=== PATIENT | female | born 1980 | race Two or more races ===

== ENCOUNTER 2024-06-30 21:20 | Emergency (ER) | payer OTHER ==
[~2024-06-30] VITALS: Ht 165.1 cm; Wt 79.4 kg
[2024-06-30] MEDS ORDERED: ONDANSETRON 4 MG/2 ML VIAL ONE (22:05)
[2024-06-30] MEDS ORDERED: KETOROLAC TROMETHAMINE 30 MG INJ ONE (22:06)
[2024-06-30 22:11] LABS: BASOPHILS # (AUTO) 0.1 K/UL (0.0-0.2); BASOPHILS % (AUTO) 0.5 % (0.0-2.0); EOSINOPHILS % (AUTO) 0.1 % (0.0-7.0); HEMATOCRIT 36.9 % (31.2-41.9); HEMOGLOBIN 12.3 g/dL (10.9-14.3); LYMPHOCYTES # (AUTO) 0.9 K/uL (0.8-4.8); LYMPHOCYTES % (AUTO) 6.3 % (20.5-51.5); MEAN CORPUSCULAR HEMOGLOBIN 28.1 uug (24.7-32.8); MEAN CORPUSCULAR HGB CONC 33 g/dL (32.3-35.6); MEAN CORPUSCULAR VOLUME 84.6 fL (75.5-95.3); MONOCYTES # (AUTO) 1.1 K/uL (0.1-1.30); MONOCYTES % (AUTO) 7.6 % (0.0-11.0); NEUTROPHILS # (AUTO) 12.3 K/uL (1.8-8.9); NEUTROPHILS % (AUTO) 85.5 % (38.5-71.5); PLATELET COUNT (AUTO) 294 K/uL (179-408); RED BLOOD CELL COUNT(AUTO) 4.36 MIL/uL (3.63-4.92); RED CELL DISTRIBUTION WIDTH 14.1 % (12.3-17.7); WHITE BLOOD COUNT (AUTO) 14.4 K/uL (3.8-11.8)
[2024-06-30 22:16] LABS: DIFFERENTIAL COMMENT 1
[2024-06-30] MEDS: KETOROLAC TROMETHAMINE 15 MG INJ IVP ONE (22:17)
[2024-06-30] MEDS: ONDANSETRON 4 MG/2 ML VIAL IV ONE (22:17)
[2024-06-30] MEDS: IV NORMAL SALINE 1000 ML BAG IV ONE (22:17)
[2024-06-30 22:23] LABS: CALCIUM 9.2 mg/dL (8.5-10.1); CARBON DIOXIDE 24 mmol/L (21-32); CHLORIDE 102 mmol/L (98-107); CREATININE 0.9 mg/dL (0.6-1.3); GLUCOSE 124 mg/dL (74-106); POTASSIUM 3.4 mmol/L (3.5-5.1); SODIUM SERUM 141 mmol/L (136-145); UREA NITROGEN, BLOOD 11 mg/dL (7-18)
[2024-06-30 22:28] LABS: ALANINE AMINOTRANSFERASE 20 U/L (14-59); ALBUMIN 3.5 g/dL (3.4-5.0); ALKALINE PHOSPHATASE 65 U/L (50-136); ASPARTATE AMINOTRANSFERASE 14 U/L (15-37); BILIRUBIN,DIRECT 0.2 mg/dL (0.0-0.2); BILIRUBIN,TOTAL 0.6 mg/dL (0.2-1.0); LIPASE 20 U/L (16-77); TOTAL PROTEIN, SERUM 7.2 g/dL (6.4-8.2)
[2024-06-30 22:44] LABS: PREGNANCY TEST SERUM QUAN < 1 miul/L (0-6)
[2024-06-30 23:33] LABS: *BILIRUBIN,URIN NEGATIVE (NEGATIVE); *BLOOD, URINE 3+ (NEGATIVE); *CLARITY,URINE SLIGHTLY CLOUDY (CLEAR); *COLOR,URINE YELLOW (YELLOW); *KETONES,URINE NEGATIVE (NEGATIVE); *PROTEIN,URINE 1+ (NEGATIVE); *UROBILINOGEN,URINE 0.2 E.U./dl (NORMAL); LEUKOCYTE ESTERASE ,URINE 1+ (NEGATIVE); NITRITE, URINE POSITIVE (NEGATIVE); UGLUCOSE NEGATIVE (NEGATIVE)
[2024-06-30 23:45] LABS: BACTERIA,URINE MANY /HPF (NONE SEEN); SQUAMOUS EPITHELIAL CELL,UR MODERATE /HPF (NONE SEEN)
[2024-07-01] MEDS ORDERED: ONDA4TAB11 PO (00:03)
[2024-07-01] MEDS ORDERED: NITR-84 PO (00:03)
[2024-07-01 00:33] VITALS: BP 112/70; TEMP 100; O2SAT 98
[2024-07-01] MEDS ORDERED: CEFP200T14 PO (22:36)
== END 2024-07-01 00:34 | disposition home or self-care (01) ==
LOC: ER 21:35
DX: R11.2 Nausea with vomiting, unspecified (principal); R53.1 Weakness; R00.0 Tachycardia, unspecified; R50.9 Fever, unspecified; R82.81 Pyuria; R10.2 Pelvic and perineal pain; Z87.442 Personal history of urinary calculi
CPT/HCPCS: 99285; 96374; 76770; 71045; 96375; 80076; 80048; 81001; 83690; 85025; 87040 ×2; 87086; 84702; 36415; 83605; J1885; J2405; J7040; A4606; A4663

== ENCOUNTER 2024-07-01 19:45 | Emergency (ER) | payer OTHER ==
[~2024-07-01] VITALS: Ht 165.1 cm; Wt 78.9 kg
[~2024-07-01 19:45] MED LIST: NITR-84 PO; ONDA4TAB11 PO
[2024-07-01] MEDS ORDERED: KETOROLAC TROMETHAMINE 15 MG INJ ONE (20:20)
[2024-07-01] MEDS ORDERED: ONDANSETRON 4 MG/2 ML VIAL ONE (20:20)
[2024-07-01] MEDS: IV NORMAL SALINE 1000 ML BAG IV ONE (20:25)
[2024-07-01] MEDS: KETOROLAC TROMETHAMINE 15 MG INJ IVP ONE (20:26)
[2024-07-01] MEDS: ONDANSETRON 4 MG/2 ML VIAL IV ONE (20:26)
[2024-07-01 20:36] LABS: BASOPHILS # (AUTO) 0.1 K/UL (0.0-0.2); BASOPHILS % (AUTO) 0.6 % (0.0-2.0); EOSINOPHILS % (AUTO) 0.1 % (0.0-7.0); HEMATOCRIT 34.3 % (31.2-41.9); HEMOGLOBIN 11.4 g/dL (10.9-14.3); LYMPHOCYTES # (AUTO) 1.4 K/uL (0.8-4.8); MEAN CORPUSCULAR HEMOGLOBIN 28.2 uug (24.7-32.8); MEAN CORPUSCULAR HGB CONC 33 g/dL (32.3-35.6); MEAN CORPUSCULAR VOLUME 84.6 fL (75.5-95.3); MONOCYTES # (AUTO) 1.4 K/uL (0.1-1.30); MONOCYTES % (AUTO) 8.4 % (0.0-11.0); NEUTROPHILS # (AUTO) 14.2 K/uL (1.8-8.9); NEUTROPHILS % (AUTO) 82.9 % (38.5-71.5); PLATELET COUNT (AUTO) 271 K/uL (179-408); RED BLOOD CELL COUNT(AUTO) 4.05 MIL/uL (3.63-4.92); RED CELL DISTRIBUTION WIDTH 14.2 % (12.3-17.7); WHITE BLOOD COUNT (AUTO) 17.1 K/uL (3.8-11.8)
[2024-07-01 20:40] LABS: DIFFERENTIAL COMMENT 1
[2024-07-01 20:41] LABS: *BILIRUBIN,URIN NEGATIVE (NEGATIVE); *BLOOD, URINE 3+ (NEGATIVE); *CLARITY,URINE SLIGHTLY CLOUDY (CLEAR); *COLOR,URINE YELLOW (YELLOW); *KETONES,URINE 1+ (NEGATIVE); *PROTEIN,URINE 2+ (NEGATIVE); LEUKOCYTE ESTERASE ,URINE 1+ (NEGATIVE); NITRITE, URINE NEGATIVE (NEGATIVE); UGLUCOSE NEGATIVE (NEGATIVE)
[2024-07-01 20:42] LABS: CALCIUM 8.1 mg/dL (8.5-10.1); CREATININE 0.9 mg/dL (0.6-1.3); POTASSIUM 3.3 mmol/L (3.5-5.1)
[2024-07-01 20:48] LABS: BILIRUBIN,DIRECT 0.2 mg/dL (0.0-0.2); BILIRUBIN,TOTAL 0.6 mg/dL (0.2-1.0); TOTAL PROTEIN, SERUM 6.9 g/dL (6.4-8.2)
[2024-07-01 20:58] LABS: BACTERIA,URINE MODERATE /HPF (NONE SEEN); SQUAMOUS EPITHELIAL CELL,UR MODERATE /HPF (NONE SEEN); WBC,URINE 20-50 /HPF (0-3)
[2024-07-01] MEDS ORDERED: CEFTRIAXONE /D5W 50ML IVPB **ER PYXIS IV ONE (21:12)
[2024-07-01] MEDS: CEFTRIAXONE 1 G in IV DEXTROSE 5% 50 ML IV ONE (21:17)
[2024-07-01] MEDS: POTASSIUM CHLORIDE 20 MEQ TAB.PRT.SR PO ONE (21:17)
[2024-07-01] MEDS ORDERED: CEFP200T14 PO (22:36)
[2024-07-01] MEDS ORDERED: ACETAMINOPHEN 500 MG TABLET ONE (22:39)
[2024-07-01] MEDS: ACETAMINOPHEN 500 MG TABLET PO ONE (22:48)
[2024-07-01 23:14] VITALS: BP 108/66; TEMP 97.8; O2SAT 98
== END 2024-07-01 23:15 | disposition home or self-care (01) ==
LOC: ER 19:48
DX: N39.0 Urinary tract infection, site not specified (principal); R51.9 Headache, unspecified; R50.9 Fever, unspecified; R11.2 Nausea with vomiting, unspecified; Z20.822 Contact with and (suspected) exposure to COVID-19
CPT/HCPCS: 99284; 96374; 96375; 71045; 96361; 87426; 87804 ×2; 80076; 80048; 81001; 85025; 85730; 87086; 36415; 83605; J1885; J0696; J2405; J7040; A4606; A4663; A9150

== ENCOUNTER 2024-07-19 08:27 | Emergency (ER) | payer OTHER ==
[~2024-07-19] VITALS: Ht 165.1 cm; Wt 77.1 kg
[~2024-07-19 08:27] MED LIST changes: +CEFP200T14 PO
[2024-07-19 08:36] VITALS: O2SAT 98
[2024-07-19] MEDS ORDERED: DEXAMETHASONE SOD PHOSPHATE 10 MG INJ ONE (08:48)
[2024-07-19] MEDS: DEXAMETHASONE SOD PHOSPHATE 4 MG INJ IM ONE (08:51)
[2024-07-19] MEDS ORDERED: INDO50CA92 PO (08:52)
== END 2024-07-19 09:04 | disposition home or self-care (01) ==
LOC: ER 08:27
DX: M10.071 Idiopathic gout, right ankle and foot (principal); Z87.442 Personal history of urinary calculi
CPT/HCPCS: A4606; A4663; J1100